=== PATIENT | female | born 1955 | race African-American/Black ===

== ENCOUNTER 2017-05-03 07:43 | Emergency (ER) | payer OTHER ==
[2017-05-03] MEDS ORDERED: Ondansetron HCl/PF 4 MG/2 ML Vial ONE (08:05)
[2017-05-03 08:22] LABS: #Basophils 0.1 thou/uL (0.0-0.2); #Eosinphils 0.2 thou/uL (0.0-0.7); #Lymphocytes 1.9 thou/uL (1.20-3.40); #Monocytes 0.8 thou/uL (0.11-0.59); #Neutrophils 8.6 thou/uL (1.40-6.50); %Basophils 0.9 % (0.0-1.0); %Eosinophils 1.4 % (0.0-10.0); %Lymphocytes 16.5 % (21.0-51.0); %Neutrophils 74.2 % (42.0-75.0); Hemoglobin 10.8 g/dL (12.0-16.0); Mean Corpuscular Hemoglobin 26.3 pg (27.0-31.0); Mean Platelet Volume 7.4 fL (7.4-10.4); Platelet Count 282 thou/uL (130-400); RBC Distribution Width 11.2 % (11.5-14.5); Red Blood Cell (RBC) Count 4.12 mill/uL (4.20-5.40); White Blood Cell (WBC) Count 11.6 thou/uL (4.8-10.8)
[2017-05-03 08:33] LABS: ALT (SGPT) 11 U/L (8-55); AST (SGOT) 13 U/L (5-34); Alkaline Phosphatase 58 U/L (40-150); Anion Gap 14 mmol/L (10-20); BUN (Urea Nitrogen) 20 mg/dL (9.8-20.1); Bilirubin, Total 0.3 mg/dL (0.2-1.2); CK (CPK) 250 U/L (29-168); Calc. Creatinine Clearance 0 mL/min (70-130); Calcium 9.6 mg/dL (7.8-10.44); Carbon Dioxide 21 mmol/L (23-31); Chloride 106 mmol/L (98-107); Estimated GFR-MDRD 83; Globulin 3.6 g/dL (2.4-3.5); Glucose 133 mg/dL (80-115); Lipase 27 U/L (8-78); Potassium 4.1 mmol/L (3.5-5.1); Protein, Total 7.6 g/dL (6.0-8.3); Sodium 137 mmol/L (136-145)
[2017-05-03 08:36] LABS: CKMB 0.4 ng/mL (0-6.6); Troponin I Less than 0.010 ng/mL (< 0.028)
--- NOTE | 2017-05-03 08:44 | RAD ---
PORTABLE AP CHEST XRAY: DATE: 05/03/17. HISTORY: Chest tightness and chest pain. Lower abdominal pain and left-sided back pain. COMPARISON: 08/08/15. FINDINGS: Postsurgical changes related to median sternotomy are noted. Cardiac silhouette and pulmonary vascul ature are within normal limits. The lungs remain clear. There has been no interval change from the prior exam. IMPRESSION: No acute cardiopulmonary process. POS: [facility]
[2017-05-03] MEDS ORDERED: Iopamidol 370 76% 100 ML VIAL ONE (09:00)
[2017-05-03] MEDS ORDERED: metroNIDAZOLE 500 MG/100 ML BAG ONE (10:09)
[2017-05-03] MEDS ORDERED: Ciprofloxacin Lactate/D5W 400 mg/200 ml Premix ONE (10:09)
--- NOTE | 2017-05-03 10:11 | CT ---
CT ABDOMEN AND PELVIS WITH IV CONTRAST: Date: 05/03/17 Multiple axial tomograms obtained of the abdomen and pelvis with IV enhancement. HISTORY: Abdominal pain. Periumbilical pain with chest pressure and nausea. FINDINGS: The lung bases are clear. Liver, spleen, and pancreas appear unremarkable. There is a gastric band in place and this band appears in adequate position. The adrenal glands and kidneys are unremarkable. No hydronephrosis or urinary obstruction. Urinary bl adder is unremarkable. Small bowel loops appear normal. Review of the colon reveals diverticulosis of the descending colon and sigmoid. There is luminal narr owing in the upper sigmoid in the upper left pelvis with what appears to be mural thickening. There i s suggestion of some mild inflammatory change at this location. Findings are suspicious for early jose antonio nges of diverticulitis at this location. No extraluminal fluid, abscess, or gas identified. Aorta nor mal caliber without atherosclerotic calcification noted. IMPRESSION: Luminal narrowing with mural thickening and mild inflammatory change associated with diverticulosis i n the left lower abdomen involving the lower descending/upper sigmoid colon. Findings most consistent with diverticulitis. Recommend close follow-up. Sigmoidoscopy is recommended after medical treatment to rule out other processes. POS: [facility]
== END 2017-05-03 11:55 | disposition home or self-care (01) ==
LOC: SCSER 07:43 → EEVIPCON 07:43 → SCSER 11:55
DX: K57.92 Diverticulitis of intestine, part unspecified, without perforation or abscess without bleeding (principal); I25.2 Old myocardial infarction; E11.9 Type 2 diabetes mellitus without complications; Z79.82 Long term (current) use of aspirin; Z79.84 Long term (current) use of oral hypoglycemic drugs; Z79.899 Other long term (current) drug therapy
CPT/HCPCS: 71045; 74177; 80053; 82550; 82553; 83690; 84484; 85025; 93005; 96361; 96365; 96366; 96368; 96375; 96376; J0744; J2270; J2405

== ENCOUNTER 2018-03-17 11:53 | Day surgery (SDC) | payer OTHER ==
[2018-03-16 10:25] VITALS: BMI 29.9
[~2018-03-17 11:53] MED LIST: Lidocaine 1% PF 5 ML VIAL ONE; PROPOFOL 200 MG/20 ML VIAL ONE
--- NOTE | 2018-03-17 22:31 | OP ---
DATE OF PROCEDURE: 03/17/2018 TITLE OF PROCEDURE: Colonoscopy. PREPROCEDURE DIAGNOSES: 1. Colon screening. 2. Incidental lower abdominal pain. 3. History of diverticulosis. POSTPROCEDURE DIAGNOSES: 1. Exam to cecum; good bowel preparation. 2. Mild sigmoid diverticulosis. 3. Small internal hemorrhoids. 4. Otherwise normal colonoscopy. PROCEDURE IN DETAIL: Written informed consent was obtained. Upon completion of the EGD, the patient was repositioned for the colonoscopy. Total intravenous anesthesia was provided by Dr. Estevez and associates. A digital rectal exam was performed, which was unremarkable. A Pentax video colonoscope was inserted through the anal canal and advanced under direct visualization to the cecum. Position in the cecum was verified by clear identification of the appendiceal orifice and the ileocecal valve. The quality of the bowel preparation was good. Each colon segment was examined carefully as the colonoscope was slowly withdrawn from the cecum. Vascular pattern and haustral folds appeared normal. Frequent diverticular orifices [id number] size were observed in the sigmoid colon. There was no evidence of diverticular bleeding or infection. No polyps were identified. A retroflexed exam in the rectum demonstrated small internal hemorrhoids that were not actively bleeding. The colon was decompressed as the colonoscope was removed from the patient. She was transferred to the Day Stay Surgery area for postprocedure monitoring. There were no immediate complications. RECOMMENDATIONS: 1. Resume previous diet and medications. 2. Add a fiber supplement, Metamucil 2 to 3 teaspoons in water daily. 3. Repeat colonoscopy in 10 years for screening. 4. Follow up in GI office in 1 month as per my EGD report. Job ID: [id number]
--- NOTE | 2018-03-17 22:47 | OP ---
DATE OF PROCEDURE: 03/17/2018 TITLE OF PROCEDURE: EGD with biopsy. PREPROCEDURE DIAGNOSIS: Unexplained epigastric pain. POSTPROCEDURE DIAGNOSES: 1. Exam to second portion of duodenum. 2. 4 cm to 5 cm hiatal hernia, extending from 36 cm to 40 cm from the incisors. 3. Mild antral gastritis, biopsied. 4. Normal duodenum. 5. No evidence of gastric or esophageal ulcers. PROCEDURE IN DETAIL: Written informed consent was obtained. The patient was brought to the endoscopy suite. Total intravenous anesthesia was provided by Dr. [facility]. The patient was placed in the left lateral decubitus position. A bite block was inserted into the mouth. When adequate sedation was achieved, a Pentax video diagnostic gastroscope was introduced into the oral cavity, and the esophagus was carefully intubated. The gastroscope was advanced under direct visualization to the second portion of the duodenum. Endoscopic findings revealed 4 cm to 5 cm sliding hiatal hernia with an irregular Z-line estimated at 34 cm from the incisors. Biopsies were obtained from the lower esophagus for histology. No ulcer was seen. The stomach was entered and carefully examined. This included a retroflex view of the cardia and fundus. In the gastric antrum, mucosal changes included mild edema, erythema, and numerous subepithelial petechiae in a patchy distribution, suggestive of an antral gastritis. No active bleeding was seen. Biopsies were obtained for histology. The duodenum from the bulb to the second portion was then examined and appeared normal. The stomach was decompressed as the endoscope was removed from the patient. She was repositioned for the colonoscopy. There were no immediate complications. RECOMMENDATIONS: 1. Await biopsy results. 2. Ask the patient to call me in 1 week for biopsy results. 3. Initiate esomeprazole 40 mg daily for 6 weeks. 4. Follow up in the office in 1 month. 5. Proceed with colonoscopy. Job ID: [id number]
== END 2018-03-17 16:05 | disposition home or self-care (01) ==
LOC: SDC 11:53 → EEVIPCON 11:53 → SDC 16:05
PROVIDERS: ATTEND Internal Medicine Gastroenterology
PROC: 0DB38ZX Excision of Lower Esophagus, Via Natural or Artificial Opening Endoscopic, Diagnostic (ICD-10-PCS; principal; 2018-03-17)
PROC: 0DB68ZX Excision of Stomach, Via Natural or Artificial Opening Endoscopic, Diagnostic (ICD-10-PCS; principal; 2018-03-17)
PROC: 0DJD8ZZ Inspection of Lower Intestinal Tract, Via Natural or Artificial Opening Endoscopic (ICD-10-PCS; principal; 2018-03-17)
DX: Z12.11 Encounter for screening for malignant neoplasm of colon (principal); K57.30 Diverticulosis of large intestine without perforation or abscess without bleeding; K64.8 Other hemorrhoids; K29.50 Unspecified chronic gastritis without bleeding; K20.9 Esophagitis, unspecified; K44.9 Diaphragmatic hernia without obstruction or gangrene; I25.10 Atherosclerotic heart disease of native coronary artery without angina pectoris; E11.9 Type 2 diabetes mellitus without complications; Z90.710 Acquired absence of both cervix and uterus; Z95.1 Presence of aortocoronary bypass graft; Z79.84 Long term (current) use of oral hypoglycemic drugs; Z79.82 Long term (current) use of aspirin; Z79.02 Long term (current) use of antithrombotics/antiplatelets; Z79.899 Other long term (current) drug therapy
CPT/HCPCS: 88305; 88312; 88313; J2001; J2704

== ENCOUNTER 2018-06-10 08:57 | Outpatient (CLI) | payer OTHER | END 2018-06-10 08:58 | disposition home or self-care (01) | LOC: BICMAMMO 08:57 | PROVIDERS: ATTEND Family Medicine | DX: Z12.31 Encounter for screening mammogram for malignant neoplasm of breast (principal); R92.1 Mammographic calcification found on diagnostic imaging of breast | CPT/HCPCS: 77063; 77067 ==